=== PATIENT | female | born 1985 | race Caucasian/White ===

== ENCOUNTER → 2017-06-08 | Outpatient (CLI) | payer OTHER | END | disposition home or self-care (01) | LOC: RAD 18:13 | DX: M54.5 Low back pain (principal) ==

== ENCOUNTER → 2017-08-24 | Outpatient (CLI) | payer OTHER | END | disposition home or self-care (01) | LOC: MRI 13:51 | DX: M51.27 Other intervertebral disc displacement, lumbosacral region (principal); E11.9 Type 2 diabetes mellitus without complications ==

== ENCOUNTER 2020-12-04 15:37 | Inpatient (IN) | payer OTHER ==
[~2020-12-04] VITALS: Ht 177.8 cm; Wt 109.5 kg
[2020-12-04 15:44] VITALS: BP 159/89
[2020-12-04] MEDS ORDERED: ZOLOFT100 MG PO (17:29)
[2020-12-04] MEDS ORDERED: SINGULAIR10 M1 PO (17:29)
[2020-12-04] MEDS ORDERED: HYDROXYZINE HCL25 MG PO (17:30)
[2020-12-04] MEDS ORDERED: MAXALT10 MG PO (17:31)
[2020-12-04] MEDS ORDERED: MYRBETRIQ50 M1 PO (17:31)
[2020-12-04] MEDS ORDERED: VITAMIN D3125 MCG PO (17:33)
[2020-12-04] MEDS ORDERED: VITAMIN C1000 M5 PO (17:33)
[2020-12-04] MEDS ORDERED: APPLE CIDER VI300 MG PO (17:34)
[2020-12-04] MEDS ORDERED: VENT7GM INH (17:34)
[2020-12-04] MEDS ORDERED: AMARYL4 MG PO (17:37)
[2020-12-04] MEDS ORDERED: LANTUS SOL100 UNIT/1 SC (17:37)
[2020-12-04] MEDS ORDERED: JARDIANCE25 MG PO (17:38)
[2020-12-04 17:59] LABS: BASO # 0.1 10*3/uL (0.0-0.1); BASO % 0.9 % (0.0-1.0); EOS # 0.3 10*3/uL (0.0-0.4); EOS % 2.5 % (1.0-4.0); LYMPH # 2.5 10*3/uL (1.3-4.4); LYMPH % 25.1 % (27.0-41.0); MEAN CELL VOLUME 101.5 fl (81.0-99.0); MEAN CORPUSCULAR HGB 32.9 pg (27.0-31.0); MEAN CORPUSCULAR HGB CONC 32.4 g/dl (33.0-37.0); MONO # 0.8 10*3/uL (0.1-1.0); MONO % 8.1 % (3.0-9.0); NEUT # 6.1 10*3/uL (2.3-7.9); PLATELET COUNT AUTOMATED 211 10*3/uL (130-400); RED BLOOD COUNT 4.53 10*6/uL (4.10-5.10); RED CELL DISTRI WIDTH 13.2 % (0-14.5)
[2020-12-04 18:00] VITALS: BP 150/84
[2020-12-04 18:15] LABS: ALBUMIN 2.9 gm/dl (3.1-4.5); ALKALINE PHOSPHATASE 67 U/L (45-117); BUN 14 mg/dl (7-24); CHLORIDE 104 mmol/L (98-107); CREATININE 0.66 mg/dL (0.55-1.02); LIPASE 228 U/L (73-393); POTASSIUM 3.7 mmol/L (3.5-5.1); SGOT/AST 8 IU/L (3-35); SGPT/ALT 21 U/L (12-78); SODIUM 133 mmol/L (136-145); TOTAL PROTEIN 7.6 gm/dL (6.4-8.2)
[2020-12-04 20:31] VITALS: BP 142/78
[2020-12-04 22:55] VITALS: BP 113/49
[2020-12-04 23:00] VITALS: BP 124/58
[2020-12-04] MEDS ORDERED: ACTOS15 M1 PO (23:47)
[2020-12-04] MEDS ORDERED: VICTOZA 3-0.6 MG/0.1 SQ (23:50)
[2020-12-04] MEDS ORDERED: CRESTOR5 MG PO (23:53)
[2020-12-04] MEDS ORDERED: LISINOPRIL5 MG PO (23:54)
[2020-12-05] VITALS (9 sets, daily range): BP systolic 102–126; BP diastolic 43–85
[2020-12-05 02:40] LABS: BILIRUBIN Negative (Negative); BLOOD Negative (Negative); CLARITY Clear (Clear); COLOR Yellow (Yellow); GLUCOSE 3+ (Negative); KETONE 3+ (Negative); LEUKO ESTERASE Negative (Negative); NITRITE Negative (Negative); SPECIFIC GRAVITY >= 1.030 (1.001-1.030)
[2020-12-05 06:23] LABS: BASO # 0.1 10*3/uL (0.0-0.1); BASO % 0.8 % (0.0-1.0); EOS # 0.3 10*3/uL (0.0-0.4); EOS % 2.9 % (1.0-4.0); HEMATOCRIT 46.1 % (37.0-47.0); LYMPH # 3.2 10*3/uL (1.3-4.4); LYMPH % 31.4 % (27.0-41.0); MEAN CELL VOLUME 98.9 fl (81.0-99.0); MEAN CORPUSCULAR HGB CONC 33.4 g/dl (33.0-37.0); MEAN PLATELET VOLUME 9.2 fl (9.6-12.3); MONO # 0.9 10*3/uL (0.1-1.0); MONO % 8.4 % (3.0-9.0); NEUT # 5.6 10*3/uL (2.3-7.9); NEUT % 54.5 % (47.0-73.0); PLATELET COUNT AUTOMATED 231 10*3/uL (130-400); RED BLOOD COUNT 4.66 10*6/uL (4.10-5.10); RED CELL DISTRI WIDTH 13.1 % (0-14.5); WHITE BLOOD COUNT 10.3 10*3/uL (4.8-10.8)
[2020-12-05 06:54] LABS: ALKALINE PHOSPHATASE 72 U/L (45-117); BUN 15 mg/dl (7-24); CHLORIDE 108 mmol/L (98-107); CREATININE 0.69 mg/dL (0.55-1.02); FREE T4 1.07 ng/dl (0.76-1.46); POTASSIUM 4.3 mmol/L (3.5-5.1); SGOT/AST 5 IU/L (3-35); SGPT/ALT 19 U/L (12-78); SODIUM 140 mmol/L (136-145); TOTAL PROTEIN 7.4 gm/dL (6.4-8.2)
[2020-12-05] MEDS ORDERED: VIBRAMYCIN HYC100 MG PO (12:04)
[2020-12-05] MEDS ORDERED: HYDROCODONE-AC1 EAC1 PO (12:05)
== END 2020-12-05 13:40 | disposition home or self-care (01) | DRG 603 ==
LOC: ED 15:37 → EDHOLD 21:14 → 5E 21:14
PROVIDERS: Physical Therapist; Physician Assistant; ADMIT Internal Medicine; ATTEND Internal Medicine
PROC: 0Y900ZZ Drainage of Right Buttock, Open Approach (ICD-10-PCS; principal; 2020-12-05)
DX: L02.31 Cutaneous abscess of buttock (principal); E87.1 Hypo-osmolality and hyponatremia; E46 Unspecified protein-calorie malnutrition; L03.317 Cellulitis of buttock; R00.0 Tachycardia, unspecified; F41.9 Anxiety disorder, unspecified; E11.40 Type 2 diabetes mellitus with diabetic neuropathy, unspecified; R03.0 Elevated blood-pressure reading, without diagnosis of hypertension; K58.9 Irritable bowel syndrome, unspecified; M47.816 Spondylosis without myelopathy or radiculopathy, lumbar region; E66.9 Obesity, unspecified; F17.210 Nicotine dependence, cigarettes, uncomplicated; E11.65 Type 2 diabetes mellitus with hyperglycemia; E87.8 Other disorders of electrolyte and fluid balance, not elsewhere classified; Z80.3 Family history of malignant neoplasm of breast; Z81.8 Family history of other mental and behavioral disorders; Z83.3 Family history of diabetes mellitus; Z88.0 Allergy status to penicillin; Z91.041 Radiographic dye allergy status; Z91.040 Latex allergy status; Z79.899 Other long term (current) drug therapy; Z71.6 Tobacco abuse counseling; Z79.4 Long term (current) use of insulin; Z68.34 Body mass index [BMI] 34.0-34.9, adult

== ENCOUNTER → 2020-12-09 | Outpatient (CLI) | payer OTHER ==
[~2020-12-09] MED LIST: ACTOS15 M1 PO; AMARYL4 MG PO; APPLE CIDER VI300 MG PO; CRESTOR5 MG PO; HYDROCODONE-AC1 EAC1 PO; HYDROXYZINE HCL25 MG PO; JARDIANCE25 MG PO; LANTUS SOL100 UNIT/1 SC; LISINOPRIL5 MG PO; MAXALT10 MG PO; MYRBETRIQ50 M1 PO; SINGULAIR10 M1 PO; VENT7GM INH; VIBRAMYCIN HYC100 MG PO; VICTOZA 3-0.6 MG/0.1 SQ; VITAMIN C1000 M5 PO; VITAMIN D3125 MCG PO; ZOLOFT100 MG PO
== END ==
LOC: WOUNDCARE 00:45
PROVIDERS: ATTEND Surgery
DX: T81.89XA Other complications of procedures, not elsewhere classified, initial encounter (principal); L02.31 Cutaneous abscess of buttock; F17.290 Nicotine dependence, other tobacco product, uncomplicated; Y83.8 Other surgical procedures as the cause of abnormal reaction of the patient, or of later complication, without mention of misadventure at the time of the procedure; Y92.238 Other place in hospital as the place of occurrence of the external cause

== ENCOUNTER → 2020-12-17 | Outpatient (CLI) | payer OTHER | LOC: WOUNDCARE 01:56 | PROVIDERS: ATTEND Nurse Practitioner Family | DX: L02.31 Cutaneous abscess of buttock (principal); E11.621 Type 2 diabetes mellitus with foot ulcer; L98.412 Non-pressure chronic ulcer of buttock with fat layer exposed; E11.622 Type 2 diabetes mellitus with other skin ulcer; L97.218 Non-pressure chronic ulcer of right calf with other specified severity; F17.290 Nicotine dependence, other tobacco product, uncomplicated; Y83.8 Other surgical procedures as the cause of abnormal reaction of the patient, or of later complication, without mention of misadventure at the time of the procedure ==

== ENCOUNTER → 2020-12-26 | Outpatient (CLI) | payer OTHER | LOC: WOUNDCARE 00:44 | PROVIDERS: ATTEND Nurse Practitioner Family | DX: L02.31 Cutaneous abscess of buttock (principal); F17.290 Nicotine dependence, other tobacco product, uncomplicated ==

== ENCOUNTER → 2021-01-07 | Outpatient (CLI) | payer OTHER | LOC: WOUNDCARE 00:30 | PROVIDERS: ATTEND Nurse Practitioner Family | DX: L02.31 Cutaneous abscess of buttock (principal); F17.290 Nicotine dependence, other tobacco product, uncomplicated ==

== ENCOUNTER 2022-04-11 17:39 | Emergency (ER) | payer OTHER ==
[~2022-04-11] VITALS: Ht 177.8 cm; Wt 120.7 kg
[2022-04-11] MEDS ORDERED: ZANAFLEX4 MG PO (19:21)
== END 2022-04-11 19:41 | disposition home or self-care (01) ==
LOC: ED 17:39
DX: R68.84 Jaw pain (principal); E11.9 Type 2 diabetes mellitus without complications; F41.9 Anxiety disorder, unspecified; F32.A Depression, unspecified; Z88.0 Allergy status to penicillin; Z91.040 Latex allergy status; Z91.041 Radiographic dye allergy status; Z98.890 Other specified postprocedural states

== ENCOUNTER 2022-06-04 11:42 | Emergency (ER) | payer OTHER ==
[~2022-06-04] VITALS: Wt 121.6 kg
[~2022-06-04 11:42] MED LIST changes: +ZANAFLEX4 MG PO
[2022-06-04] MEDS ORDERED: PREDNISONE50 MG PO (13:52)
== END 2022-06-04 13:57 | disposition home or self-care (01) ==
LOC: ED 11:42
DX: T63.444A Toxic effect of venom of bees, undetermined, initial encounter (principal); R06.02 Shortness of breath; R13.10 Dysphagia, unspecified; E11.9 Type 2 diabetes mellitus without complications; F41.9 Anxiety disorder, unspecified; Z88.0 Allergy status to penicillin; Z91.041 Radiographic dye allergy status; Z91.040 Latex allergy status; Z98.890 Other specified postprocedural states; F17.210 Nicotine dependence, cigarettes, uncomplicated; Y92.89 Other specified places as the place of occurrence of the external cause

== ENCOUNTER → 2022-06-25 | Outpatient (CLI) | payer OTHER ==
[~2022-06-25] MED LIST changes: +PREDNISONE50 MG PO
== END | disposition home or self-care (01) ==
LOC: ORTHO 00:48
PROVIDERS: ATTEND Orthopaedic Surgery
DX: M25.511 Pain in right shoulder (principal)

== ENCOUNTER 2022-12-02 20:10 | Emergency (ER) | payer OTHER ==
[~2022-12-02] VITALS: Ht 177.8 cm; Wt 125.2 kg
[2022-12-02] MEDS ORDERED: AMITRIPTYLINE10 MG PO (20:23)
[2022-12-02] MEDS ORDERED: PRISTIQ50 MG PO (20:24)
[2022-12-02] MEDS ORDERED: ZITHROMAX250 MG PO (22:14)
[2022-12-02] MEDS ORDERED: BENZONATATE100 M1 PO (22:14)
[2022-12-02] MEDS ORDERED: PREDNISONE20 M1 PO (22:14)
== END 2022-12-02 22:28 | disposition home or self-care (01) ==
LOC: ED 20:10
DX: J40 Bronchitis, not specified as acute or chronic (principal); Z91.030 Bee allergy status; Z88.0 Allergy status to penicillin; Z91.041 Radiographic dye allergy status; E11.65 Type 2 diabetes mellitus with hyperglycemia; E87.1 Hypo-osmolality and hyponatremia; F41.9 Anxiety disorder, unspecified; E11.40 Type 2 diabetes mellitus with diabetic neuropathy, unspecified; Z98.890 Other specified postprocedural states; F17.210 Nicotine dependence, cigarettes, uncomplicated; E11.9 Type 2 diabetes mellitus without complications

== ENCOUNTER → 2023-04-01 | Outpatient (CLI) | payer BC ==
[~2023-04-01] MED LIST changes: +AMITRIPTYLINE10 MG PO; +BENZONATATE100 M1 PO; +PREDNISONE20 M1 PO; +PRISTIQ50 MG PO; +ZITHROMAX250 MG PO
[2023-04-01 13:18] LABS: ALKALINE PHOSPHATASE 69 U/L (46-116); BUN 9 mg/dl (9-23); CHLORIDE 105 mmol/L (98-107); CHOLESTEROL 173 mg/dL (<200); LDL CHOLESTEROL 101 mg/dL (9-159); POTASSIUM 4.6 mmol/L (3.4-5.1); SGPT/ALT 20 U/L (5-49); TOTAL PROTEIN 7.1 gm/dL (6.0-8.0); TRIGLYCERIDES 129 mg/dl (<150)
== END | disposition home or self-care (01) ==
LOC: LAB 12:10
PROVIDERS: ATTEND Clinical Nurse Specialist
DX: E11.65 Type 2 diabetes mellitus with hyperglycemia (principal); E55.9 Vitamin D deficiency, unspecified; Z79.4 Long term (current) use of insulin

== ENCOUNTER → 2024-04-03 | Outpatient (CLI) | payer BC ==
[2024-04-03 12:38] LABS: ALKALINE PHOSPHATASE 70 U/L (46-116); BUN 12 mg/dl (9-23); CHLORIDE 101 mmol/L (98-107); CHOLESTEROL 194 mg/dL (<200); LDL CHOLESTEROL 114 mg/dL (9-159); POTASSIUM 4.7 mmol/L (3.4-5.1); SGPT/ALT 24 U/L (5-49); TOTAL PROTEIN 7.7 gm/dL (6.0-8.0); TRIGLYCERIDES 177 mg/dl (<150)
== END | disposition home or self-care (01) ==
LOC: LAB 11:16
PROVIDERS: ATTEND Clinical Nurse Specialist
DX: E11.65 Type 2 diabetes mellitus with hyperglycemia (principal); E55.9 Vitamin D deficiency, unspecified; Z79.4 Long term (current) use of insulin